=== PATIENT | female | born 1995 | race Caucasian/White ===

== ENCOUNTER 2021-01-20 09:08 | Emergency (ER) | payer MEDICAID, SELFPAY ==
[2021-01-20 09:09] VITALS: BP 106/71; PULSE 95; RESP 18; TEMP 36.6; O2SAT 97; BMI 22.0
--- NOTE | 2021-01-20 10:02 | EX.ED.VIS.EY ---
HPI History of Present Illness Chief Complaint: Eye Problem Informant: patient Narrative Narrative: 25-year-old female notes that a picture caused an injury to her left eye. She wears glasses but not contacts. She notes light sensitivity. [facility] Medical History delivery delivered Medical History no medical history Home Medications NK 01/20/21 [History Last Taken Unknown] Social History (Updated 01/20/21 @ 10:[address] Drake Smart DO) Smoking Status: Current some day smoker tobacco type: cigarettes substance use type: does not use ROS ROS ED Constitutional Constitutional ED: Denies chills or weight loss Eyes Eyes: Reports blurry vision; Denies change in vision or diplopia ENT ENT ED: Denies ear pain, rhinorrhea or sore throat Cardiovascular Cardiovascular: Denies chest pain, orthopnea, palpitations or racing heartbeat Respiratory/Chest Respiratory/Chest: Denies cough, dyspnea or orthopnea Gastrointestinal Gastrointestinal: Denies abdominal pain, diarrhea, nausea or vomiting Genitourinary Genitourinary ED: Denies dysuria, hematuria or urinary frequency Musculoskeletal Musculoskeletal: Denies arthralgias or myalgias Integumentary Denies abscess or rash Neurologic Neurologic: Denies headache(s) or weakness Psychiatric Psychiatric: Denies anxiety, depression, suicidal ideation or suicidal thoughts Endocrine Endocrinology: Denies polydipsia, polyphagia or polyuria Allergic/Immunologic Allergic/Immunologic ED: Denies mouth swelling, tongue swelling or urticaria EXAM Physical Exam Const Vital Signs: 01/20/21 09:09 Temperature 97.8 F Temperature Source Temporal Pulse Rate 95 Respiratory Rate 18 Blood Pressure 106/71 Blood Pressure Mean 82 Pulse Ox 97 Oxygen Delivery Method Room Air Positive well nourished and well developed General Appearance ED: well developed HEENT Reports normocephalic, head/scalp atraumatic, TM's clear and moist mucous membranes Tympanic Membrane ED: Yes TM's clear Eyes PERRL and EOMs intact bilaterally Eyes Narrative: There is an obvious corneal abrasion located in the 7 o'clock position seen with the naked eye and with fluorescein staining. Negative Raul sign Eyelid: eyelids normal Conjunctiva: conjunctiva abnormal left Pupil: PERRL and accommodation reflex normal EOM: Negative for EOM abnormal, movement deficit or nystagmus Neck no lymphadenopathy, supple and no JVD Resp normal respiratory effort and clear to auscultation bilaterally Cardio regular rate, regular rhythm and no murmurs GI normal to inspection, nondistended, normoactive bowel sounds and non-tender Palpation: soft Back/Spine no CVA tenderness and normal ROM Extremity normal to inspection General Extremety ED: Negative for edema General Extremity: Negative for edema Neuro oriented x3 and CN's II-XII intact bilaterally Sensorium / Orientation: alert Motor Exam: strength 5/5 throughout Psych mental status grossly normal Mood & Affect: Negative for depressed or tearful Skin no rashes or lesions noted and no wounds MDM MDM MDM Narrative Medical decision making narrative: Tetracaine was used for anesthesia. Sulfacetamide ophthalmic drops were prescribed. Follow-up with ophthalmology ensure resolution Discharge Plan Triage Chief Complaint: Eye Problem ED Provider: Drake Smart Dx/Rx/DC Orders Clinical Impression: Corneal abrasion, left Instructions: ED Corneal Abrasion Prescriptions: No Action NK RF: 0 Primary Care Provider: Care Physician,No Primary Referrals: Jody Brown MD [STAFF PHYSICIAN] - 5-7 Days Care Physician,No Primary [Primary Care Provider] - Activity Restrictions/Additional Instructions: Eyedrops are 2 drops 4 times a day x5 days. I would suggest follow-up either with your eye doctor or Dr. Brown to ensure resolution of your abrasion as it has potential to leave a scar. Disposition Disposition: Home, Self Care
[2021-01-20] MEDS: Sulfacetamide Sodium 15ML OPTH.BTL 2 DRP OPHTHALMIC (10:36)
[2021-01-20] MEDS: Fluorescein 1 MG STRIP 1 STRIP EACH EYE (10:37)
[2021-01-20] MEDS: Tetracaine 0.5% Ophthalmic Bottle 1 DRP EACH EYE (10:37)
[2021-01-20 10:39] VITALS: RESP 16
== END 2021-01-20 10:41 | disposition home or self-care (01) ==
PROVIDERS: Emergency Provider Emergency Medicine
DX: S05.02XA Injury of conjunctiva and corneal abrasion without foreign body, left eye, initial encounter (principal); F17.210 Nicotine dependence, cigarettes, uncomplicated; X58.XXXA Exposure to other specified factors, initial encounter
CPT/HCPCS: 99282